=== PATIENT | female | born 1965 | race Two or more races ===

== ENCOUNTER 2016-11-12 16:27 | Emergency (ER) | payer OTHER ==
[2016-11-12 16:50] VITALS: BP 134/89; PULSE 84; TEMP 98.7; BMI 32.3
[2016-11-12] MEDS ORDERED: DEXAMETHASONE LIQUID 0.5 MG/5 ML 240 ML BULK BOTTLE PO ONE (18:56)
[2016-11-12] MEDS ORDERED: IBUPROFEN 600 MG TABLET (FP) PO ONE ×2 (18:56→19:02)
[2016-11-12] MEDS ORDERED: DEXAMETHASONE SOD PHOSPHATE 10 MG/1 ML VIAL ONE (19:01)
--- NOTE | 2016-11-12 19:21 | PDOC ---
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 She reports that many residents have been sick with fevers. She developed throat pain, fevers/chills, and bodyaches on Friday. Symptoms were partially relieved by Tylenol. Vital signs on arrival are unremarkable. REVIEW OF SYSTEMS: GENERAL/CONSTITUTIONAL: Fevers/chill. No weakness. No weight change. HEAD, EYES, EARS, NOSE AND THROAT: Throat pain/painful swallowing. No ear pain. CARDIOVASCULAR: No chest pain or palpitations. RESPIRATORY: No cough, wheezing, or shortness of breath. GASTROINTESTINAL: No nausea, vomiting, diarrhea or constipation. GENITOURINARY: No dysuria, frequency, or change in urination. MUSCULOSKELETAL: No joint or muscle swelling or pain. No neck or back pain. SKIN: No rash or easy bruising. NEUROLOGIC: No headache, vertigo, loss of consciousness, or loss of sensation. ALLERGIC/IMMUNOLOGIC: No hives or skin allergy. No latex allergy. PHYSICAL EXAM: GENERAL: The patient is awake, alert, and fully oriented, in no acute distress. ENT: Tonsils 3+ and erythematous. +cervical adenopathy. Uvula midline. No drooling, stridor, or hot potato voice. Pupils equal, round and reactive to light, extraocular movements intact, sclera anicteric, conjunctiva clear. Neck supple. LUNGS: Clear to auscultation bilaterally. Normal excursion. No respiratory distress or use of accessory muscles. CV: RRR, S1/S2, no MRG. Cap refill < 2 sec. ABDOMEN: Soft, non-distended, non-tender. EXTREMITIES: Normal range of motion, no edema. NEUROLOGICAL: Normal speech, normal gait. CN II-XII grossly intact. PSYCH: Normal mood, normal affect. SKIN: Warm, dry, normal turgor, no rashes or lesions noted. Past History - Past Medical History Allergies/Adverse Reactions: Allergies Allergy/AdvReac Type Severity Reaction Status Date / Time No Known Allergies Allergy Verified 11/12/16 16:48 Home Medications: Ambulatory Orders Famotidine [Pepcid] 40 mg PO BID #10 tablet 08/02/16 Ibuprofen 600 mg PO QID PRN #20 tablet 08/02/16 Methocarbamol [Robaxin -] 500 mg PO TID PRN #21 tablet 08/02/16 Other medical history: DENIES. - Surgical History Cholecystectomy: Yes - Psycho/Social/Smoking Cessation Hx Anxiety: No Suicidal Ideation: No Smoking Status: No Smoking History: Never smoked Number of Cigarettes Smoked Daily: 0 Hx Alcohol Use: No Drug/Substance Use Hx: No Substance Use Type: None *Physical Exam - Vital Signs Last Vital Signs Temp Pulse Resp BP Pulse Ox 98.7 F 84 19 134/89 98 11/12/16 16:48 11/12/16 16:48 11/12/16 16:48 11/12/16 16:48 11/12/16 16:48 ED Treatment Course - Medications Given in the ED: ED Medications Discontinued Medications Generic Name Dose Route Start Last Admin Trade Name Freq PRN Reason Stop Dose Admin Dexamethasone 10 mg 11/12/16 18:56 11/12/16 19:07 Decadron Liquid - PO 11/12/16 18:57 10 mg ONCE ONE Administration Ibuprofen 600 mg 11/12/16 18:56 11/12/16 19:08 Motrin - PO 11/12/16 18:57 600 mg ONCE ONE Administration Medical Decision Making - Medical Decision Making 11/12/16 19:36 A/P: 50 year old female with fever and throat pain, multiple sick contacts at work. 1. Ibuprofen and decadron for throat pain 2. Rapid strep and influenza swabs 11/12/16 19:43 Rapid strep pos. Patient opts for bicillin for tx. *DC/Admit/Observation/Transfer Diagnosis at time of Disposition: Strep throat - Discharge Dispostion Disposition: HOME Condition at time of disposition: Stable Admit: No - Referrals Referrals: Justo Valle MD [Primary Care Provider] - 1 week - Patient Instructions Printed Discharge Instructions: DI for Strep Throat Additional Instructions: -You were given a one-time dose of antibiotics and steroids for strep throat -Continue taking ibuprofen as needed for pain/fever -Follow up with your primary care doctor as needed -Return here for inability to swallow, difficulty breathing, or any other concerning symptoms - Post Discharge Activity Work/School Note: Back to Work
[2016-11-12] MEDS ORDERED: PENICILLIN G BENZATHINE 1,200,000 UNIT/2 ML PFS IM ONE (19:42)
[2016-11-12] MEDS ORDERED: PENICILLIN G BENZATHINE 2,400,000 UNIT/4 ML PFS ONE (19:48)
== END 2016-11-12 19:54 | disposition home or self-care (01) ==
LOC: JERFT 16:27
DX: J02.0 Streptococcal pharyngitis (principal); B95.0 Streptococcus, group A, as the cause of diseases classified elsewhere
CPT/HCPCS: 87070; 87077; 87430; 87804; 99281-25

== ENCOUNTER 2017-03-10 10:37 | Emergency (ER) | payer OTHER ==
[2017-03-10 10:46] VITALS: BP 115/80; PULSE 68; TEMP 98.2; BMI 31.2
[2017-03-10] MEDS ORDERED: KETOROLAC TROMETHAMINE 60 MG/2 ML VIAL IM ONE (11:33)
--- NOTE | 2017-03-10 11:34 | PDOC ---
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 States performs heavy lifting, strenuous activity and stirring with her work. Denies any trauma, denies any fever, denies any other musculoskeletal illness or issue. 03/10/17 11:39 Occurred: reports: just prior to arrival Severity: reports: mild, moderate Pain Location: reports: upper extremity (bilateral hands) Modifying Factors: improves with: None Associated Symptoms (Fall): denies symptoms Past History - Travel Traveled outside of the country in the last 30 days: No Close contact w/someone who was outside of country & ill: No - Past Medical History Allergies/Adverse Reactions: Allergies Allergy/AdvReac Type Severity Reaction Status Date / Time No Known Allergies Allergy Verified 03/10/17 10:42 Home Medications: Ambulatory Orders Famotidine [Pepcid] 40 mg PO BID #10 tablet 08/02/16 Ibuprofen 600 mg PO QID PRN #20 tablet 08/02/16 Methocarbamol [Robaxin -] 500 mg PO TID PRN #21 tablet 08/02/16 Naproxen [Naprosyn -] 500 mg PO BID #30 tablet 03/10/17 Other medical history: Denies - Surgical History Cholecystectomy: Yes - Immunization History Immunization Up to Date: Yes - Psycho/Social/Smoking Cessation Hx Anxiety: No Suicidal Ideation: No Smoking Status: No Smoking History: Never smoked Have you smoked in the past 12 months: No Number of Cigarettes Smoked Daily: 0 Information on smoking cessation initiated: No Hx Alcohol Use: No Drug/Substance Use Hx: No Substance Use Type: None Review of Systems - Review of Systems Able to Perform ROS?: Yes Is the patient limited Serbian proficient: Yes Constitutional: Yes: See HPI. No: Symptoms Reported, Chills, Fever, Malaise HEENTM: Yes: See HPI. No: Symptoms Reported Musculoskeletal: Yes: Symptoms Reported, See HPI, Joint Pain, Joint Swelling Integumentary: Yes: See HPI. No: Symptoms Reported, Bruising, Pruritus Neurological: Yes: Symptoms reported, See HPI, Other (some numbness to bilateral hands, is intermittent) All Other Systems: Reviewed and Negative *Physical Exam - Vital Signs Last Vital Signs Temp Pulse Resp BP Pulse Ox 98.2 F 68 17 115/80 99 03/10/17 10:43 03/10/17 10:43 03/10/17 10:43 03/10/17 10:43 03/10/17 10:43 - Physical Exam General Appearance: Yes: Nourished, Appropriately Dressed, Apparent Distress HEENT: positive: ELLA, Normal ENT Inspection, TMs Normal, Pharynx Normal Neck: positive: Supple Respiratory/Chest: positive: Lungs Clear Musculoskeletal: positive: Normal Inspection. negative: Vertebral Tenderness Extremity: positive: Normal Capillary Refill, Normal Range of Motion, Tender ( with positive Phalen test, a listening numbness within 15-20 seconds. 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, Fully Oriented, Normal Response, Motor Strength 5/5 (has strong grasp but also elicits pain at her wrist joints.) Progress Note - Progress Note Progress Note: Carpal tunnel bilaterally, treated with NSAIDs and splint, will follow up with Orth O for possible further treatment and/or physical therapy *DC/Admit/Observation/Transfer Diagnosis at time of Disposition: Carpal tunnel syndrome on both sides - Discharge Dispostion Disposition: HOME Condition at time of disposition: Stable - Prescriptions Prescriptions: Naproxen [Naprosyn -] 500 mg PO BID #30 tablet - Referrals Referrals: Justo Valle MD [Primary Care Provider] - Elias Mac MD [Staff Physician] - - Patient Instructions Printed Discharge Instructions: DI for Carpal Tunnel Syndrome Additional Instructions: Rest, ice to area on and off for 15 minutes 4-6 times a day Avoid heavy lifting or exercise until pain and swelling is resolved or until further directed Keep area highly elevated to reduce swelling Use splints/Andi wrap as directed Followup with orthopedist in one to 2 days if not improving, if significantly improved may wait one week for followup with orthopedist May use ibuprofen 2-200 mg tablets every 6 hours as needed for pain - Post Discharge Activity Work/School Note: Back to Work
[2017-03-10] MEDS ORDERED: KETOROLAC TROMETHAMINE 60 MG/2 ML VIAL ONE (11:36)
== END 2017-03-10 11:43 | disposition home or self-care (01) ==
LOC: JERFT 10:37
PROC: 3E0233Z Introduction of Anti-inflammatory into Muscle, Percutaneous Approach (ICD-10-PCS; principal; 2017-03-10)
DX: G56.03 Carpal tunnel syndrome, bilateral upper limbs (principal)
CPT/HCPCS: 99281-25

== ENCOUNTER 2018-08-24 09:09 | Emergency (ER) | payer OTHER ==
[2018-08-24 09:14] VITALS: BP 122/84; PULSE 84; TEMP 98.1; BMI 31.2
--- NOTE | 2018-08-24 10:11 | PDOC ---
History of Present Illness - General Chief Complaint: Cold Symptoms Stated Complaint: Cold Symptoms Time Seen by Provider: 08/24/18 10:04 History Source: Patient - History of Present Illness Timing/Duration: reports: other Associated Symptoms: reports: chest pain/soreness, cough, fever/chills, sore throat Past History - Past Medical History Allergies/Adverse Reactions: Allergies Allergy/AdvReac Type Severity Reaction Status Date / Time No Known Allergies Allergy Verified 08/24/18 09:10 Home Medications: Ambulatory Orders NK [No Known Home Medication] 08/24/18 COPD: No - Surgical History Cholecystectomy: Yes - Immunization History Immunization Up to Date: Yes - Suicide/Smoking/Psychosocial Hx Smoking Status: No Smoking History: Never smoked Have you smoked in the past 12 months: No Number of Cigarettes Smoked Daily: 0 Hx Alcohol Use: No Drug/Substance Use Hx: No Substance Use Type: None Review of Systems - Review of Systems Constitutional: Yes: Chills, Fever, Malaise HEENTM: Yes: Throat Pain. No: Ear Pain Respiratory: Yes: Cough. No: Shortness of Breath ABD/GI: No: Diarrhea, Nausea, Vomiting *Physical Exam - Vital Signs Last Vital Signs Temp Pulse Resp BP Pulse Ox 98.1 F 84 18 122/84 98 08/24/18 09:10 08/24/18 09:10 08/24/18 09:10 08/24/18 09:10 08/24/18 09:10 - Physical Exam General Appearance: Yes: Appropriately Dressed. No: Apparent Distress HEENT: positive: Normal ENT Inspection, Normal Voice. negative: Scleral Icterus (R), Scleral Icterus (L) Neck: positive: Supple. negative: Lymphadenopathy (R), Lymphadenopathy (L) Respiratory/Chest: positive: Lungs Clear, Normal Breath Sounds. negative: Respiratory Distress Cardiovascular: positive: Regular Rate, S1, S2 Integumentary: positive: Dry, Warm Neurologic: positive: Fully Oriented, Alert, Normal Mood/Affect Moderate Sedation - Procedure Monitoring Vital Signs: Procedure Monitoring Vital Signs Temperature 98.1 F 08/24/18 09:10 Pulse Rate 84 08/24/18 09:10 Respiratory Rate 18 08/24/18 09:10 Blood Pressure 122/84 08/24/18 09:10 O2 Sat by Pulse Oximetry (%) 98 08/24/18 09:10 Medical Decision Making - Medical Decision Making 08/24/18 10:07 52-year-old female, no significant history here with dry cough with pleuritic chest pain, sore throat, nasal congestion and subjective fever x several days. No shortness of breath, body aches, nausea, vomiting or diarrhea. Patient well- appearing and stable with unremarkable exam. Most likely viral URI. DC with supportive treatment *DC/Admit/Observation/Transfer Diagnosis at time of Disposition: URI (upper respiratory infection) Qualifiers: URI type: unspecified viral URI Qualified Code(s): J06.9 - Acute upper respiratory infection, unspecified - Discharge Dispostion Disposition: HOME Condition at time of disposition: Good - Referrals Referrals: Justo Valle MD [Primary Care Provider] - - Patient Instructions Printed Discharge Instructions: DI for Viral Upper Respiratory Infection -- Adult Additional Instructions: You have a viral URI. Rest and plenty of fluids and take [id number] medications as needed for symptoms - Post Discharge Activity Forms/Work/School Notes: Back to Work
== END 2018-08-24 10:08 | disposition home or self-care (01) ==
LOC: JERFT 09:09
DX: J06.9 Acute upper respiratory infection, unspecified (principal); B97.89 Other viral agents as the cause of diseases classified elsewhere
CPT/HCPCS: 99281-25

== ENCOUNTER 2022-03-06 19:45 | Emergency (ER) | payer OTHER ==
[2022-03-06 20:12] VITALS: BP 117/80; PULSE 78; RESP 18; TEMP 98.3; BMI 31.2
[2022-03-06] MEDS ORDERED: diazePAM 5 MG TABLET ONE (22:54)
[2022-03-06] MEDS ORDERED: KETOROLAC TROMETHAMINE 30 MG/1 ML VIAL ONE (22:54)
[2022-03-06] MEDS ORDERED: KETOROLAC TROMETHAMINE 30 MG/1 ML VIAL IM ONE (22:55)
[2022-03-06] MEDS ORDERED: ACETAMINOPHEN 500 MG TABLET (FP) PO ONE (22:55)
[2022-03-06] MEDS ORDERED: diazePAM 5 MG TABLET PO ONE (22:55)
[2022-03-06] MEDS ORDERED: ACETAMINOPHEN 500 MG TABLET (FP) ONE (22:55)
[2022-03-06] MEDS ORDERED: LIDOCAINE 5% TOPICAL PATCH TP ONE (23:01)
[2022-03-06] MEDS ORDERED: LIDOCAINE 5% TOPICAL PATCH ONE (23:04)
[2022-03-07] MEDS ORDERED: LIDOCAINE PATCH REMOVAL MC ONE (11:00)
== END 2022-03-07 03:02 | disposition home or self-care (01) ==
LOC: JERFT 19:45
PROC: 3E023GC Introduction of Other Therapeutic Substance into Muscle, Percutaneous Approach (ICD-10-PCS; principal; 2022-03-06)
DX: M54.31 Sciatica, right side (principal)
CPT/HCPCS: 99284-25